=== PATIENT | female | born 1970 | race Caucasian/White ===

== ENCOUNTER 2017-10-05 09:10 | Outpatient (CLI) | payer OTHER ==
[~2017-10-05 09:10] MED LIST: CARAFATE1 GM; OMEPRAZOLE20 MG; SINGULAIR10 MG; ZANTAC150 M3
== END 2017-10-05 09:24 | disposition home or self-care (01) ==
LOC: RX STUDY 09:10
DX: R13.19 Other dysphagia (principal)